=== PATIENT | female | born 1975 | race Caucasian/White ===

== ENCOUNTER → 2016-04-26 | Outpatient (CLI) | payer OTHER | LOC: SBRMNEURO 21:30 | PROVIDERS: ATTEND Psychiatry & Neurology Sleep Medicine | DX: G47.33 Obstructive sleep apnea (adult) (pediatric) (principal) ==

== ENCOUNTER → 2017-03-02 | Outpatient (CLI) | payer OTHER | LOC: FIMAGING 09:42 | PROVIDERS: ATTEND Internal Medicine | DX: Z12.31 Encounter for screening mammogram for malignant neoplasm of breast (principal) | CPT/HCPCS: G0202 ==

== ENCOUNTER → 2018-02-04 | Outpatient (CLI) | payer OTHER | LOC: FIMAGING 07:49 | PROVIDERS: ATTEND Internal Medicine | DX: M53.3 Sacrococcygeal disorders, not elsewhere classified (principal) ==

== ENCOUNTER → 2018-02-04 | Outpatient (CLI) | payer OTHER | LOC: FIMAGING 08:03 | PROVIDERS: ATTEND Physician Assistant | DX: R16.0 Hepatomegaly, not elsewhere classified (principal) ==

== ENCOUNTER → 2018-03-04 | Outpatient (CLI) | payer OTHER | LOC: FIMAGING 11:33 | PROVIDERS: ATTEND Internal Medicine | DX: Z12.31 Encounter for screening mammogram for malignant neoplasm of breast (principal) ==

== ENCOUNTER → 2018-03-08 | Outpatient (CLI) | payer OTHER | LOC: FIMAGING 19:19 | PROVIDERS: ATTEND Physical Medicine & Rehabilitation | DX: M48.02 Spinal stenosis, cervical region (principal) ==

== ENCOUNTER 2018-03-11 09:35 | Outpatient (CLI) | payer OTHER ==
[2018-03-11] MEDS ORDERED: LIDOCAINE 1% 300 MG/30 ML SDV ONE (10:00)
[2018-03-11] MEDS ORDERED: NALOXONE HCL 0.4 MG/ML INJ IVP PRN (10:03)
[2018-03-11] MEDS ORDERED: MIDAZOLAM 2 MG/2 ML VIAL IVP PRN (10:03)
[2018-03-11] MEDS ORDERED: fentaNYL 100 MCG/2 ML INJ IVP PRN (10:03)
[2018-03-11] MEDS ORDERED: MEPERIDINE 25 MG/ML SYR IVP PRN (10:03)
[2018-03-11] MEDS ORDERED: FLUMAZENIL 0.5 MG/5 ML MDV IVP PRN (10:03)
[2018-03-11] MEDS ORDERED: NS 1,000 ML IV SCH (10:15)
[2018-03-11] MEDS ORDERED: ONDANSETRON 4 MG/2 ML VIAL IVP PRN (11:25)
[2018-03-11] MEDS ORDERED: oxyCODONE IR 5 MG TAB PO PRN (11:25)
--- NOTE | 2018-03-11 11:26 | PDRADPRE ---
Radiology History & Physical Indication for procedure: liver disease Home medications: Herbals/Supplements -Info Only 1 each PO AD 03/23/13 [Last Taken Unknown] Levothyroxine [Synthroid 100 mcg (RX)] 125 mcg PO DAILY 03/23/13 [Last Taken Unknown] metFORMIN HCL [Glucophage 1000 mg] 1,000 mg PO BIDMEAL 03/23/13 [Last Taken Unknown] Sulindac 250 mg PO BID 03/05/18 [Last Taken Unknown] Zoloft 100mg (*) 150 mg PO DAILY 03/05/18 [Last Taken Unknown] buPROPion SR [Wellbutrin 150mg SR (*)] 150 mg PO DAILY 03/05/18 [Last Taken Unknown] Allergies/Adverse Reactions: Penicillins Allergy (Verified 03/05/18 13:14) Mental status: A&Ox3 Heart exam: regular rate and rhythm Lungs exam: clear to auscultation Mallampati Score: Class 3
--- NOTE | 2018-03-11 11:26 | PDPROPOC ---
Sedation Plan of Care Sedation Plan of Care: vital signs stable, mental status noted, patient educated of risks, benefits, alternatives, patient can tolerate sedation ASA Classification: ASA 2 Planned drugs: fentanyl, midazolam Mallampati Score: Class 3 Mallampati Reference Image: Patient passed 3-3-2 rule?: Yes
--- NOTE | 2018-03-11 11:27 | PDRADPN ---
Radiology Procedure Note Date of Procedure: 03/11/18 Radiologist: Liam Bradley Anesthesia: IV Sedation Pre-op Diagnosis: Autoimmune hepatitis Post-op Diagnosis: Autoimmune hepatitis Indication: Liver disease Procedure: US guided liver biopsy Finding(s): 18 ga cores. Inf/Abcess present in the surg proc area at time of surgery?: No
[2018-03-11 15:56] VITALS: BP 134/83
== END 2018-03-11 14:55 | disposition home or self-care (01) ==
LOC: FIMAGING 09:35
PROVIDERS: ATTEND Physician Assistant
PROC: 0FB03ZX Excision of Liver, Percutaneous Approach, Diagnostic (ICD-10-PCS; principal; 2018-03-11 11:36)
DX: K75.81 Nonalcoholic steatohepatitis (NASH) (principal)
CPT/HCPCS: J2250; J2310; J3010

== ENCOUNTER 2018-03-12 05:33 | Emergency (ER) | payer OTHER ==
--- NOTE | 2018-03-12 06:18 | EDPHY ---
H & P Stated Complaint: abdominal pain after liver biopsy 03/11 Time Seen by Provider: 03/12/18 05:42 HPI/ROS: Chief Complaint: Abdominal pain status post liver biopsy HPI: 43-year-old woman who is having right upper quadrant abdominal pain status post liver biopsy yesterday morning. Patient states she had liver biopsy about 11:00 a.m.. She was discharged the hospital at 2:30 a.m. With pain -free. Patient states she started developing pain about 5 in the evening. Been getting progressively worse. She did call speak with the on-call radiologist to encouraged her to come in for further evaluation but she states she fell sleep. She woke up this morning with increasing right upper abdominal pain. Hurts to move and take a deep breath. No shortness of breath. No nausea or vomiting. No fevers or chills. Pain is about a 7/10. She has not taken any medications. ROS: 10 systems were reviewed and were negative except those elements noted in the HPI. PMH: Polycystic ovarian syndrome Social History: No smoking, no alcohol, no recreational drug use Family History: non-contributory Physical Exam: Gen: Awake, Alert, No Distress HEENT: Nose: no rhinorrhea Eyes: PERRLA, EOMI Mouth: Moist mucosa Neck: Supple, no JVD Chest: nontender, lungs clear to auscultation Heart: S1, S2 normal, no murmur Abd: Obese, Soft, biopsy site is clean dry and intact, moderate right upper quadrant tenderness with voluntary guarding Back: no CVA tenderness, no midline tenderness Ext: no edema, non-tender Skin: no rash Neuro: CN II-XII intact, Sensation grossly intact, Strength 5/5 in bilateral upper and lower extremities - Personal History LMP (Females 10-55): 15-21 Days Ago Current Tetanus/Diphtheria Vaccine: Yes Current Tetanus Diphtheria and Acellular Pertussis (TDAP): Yes - Medical/Surgical History Hx Asthma: No Hx Chronic Respiratory Disease: No Hx Diabetes: Yes Hx Cardiac Disease: No Hx Renal Disease: No Hx Cirrhosis: No Hx Alcoholism: No Hx HIV/AIDS: No Hx Splenectomy or Spleen Trauma: No Other PMH: pre diabetes, PCOS, - Social History Smoking Status: Never smoked Constitutional: Initial Vital Signs Temperature (C) 37.3 C 03/12/18 05:36 Heart Rate 106 H 03/12/18 05:36 Respiratory Rate 18 03/12/18 05:36 Blood Pressure 155/75 H 03/12/18 05:36 O2 Sat (%) 94 03/12/18 05:36 O2 Delivery Mode Room Air Allergies/Adverse Reactions: Penicillins Allergy (Verified 03/12/18 05:35) Home Medications: Medication Instructions Recorded Herbals/Supplements -Info Only 1 each PO AD 03/23/13 Levothyroxine [Synthroid 100 mcg 125 mcg PO DAILY 03/23/13 (RX)] metFORMIN HCL [Glucophage 1000 mg] 1,000 mg PO BIDMEAL 03/23/13 Sulindac 250 mg PO BID 03/05/18 Zoloft 100mg (*) 150 mg PO DAILY 03/05/18 buPROPion SR [Wellbutrin 150mg SR 150 mg PO DAILY 03/05/18 (*)] Medical Decision Making - Diagnostics Imaging Results: CT scan of the abdomen pelvis shows no signs of bleed or hematoma. There is some constipation right colon. No findings suggestive of complication of her liver biopsy. Study interpreted Dr. Carney. ED Course/Re-evaluation: 43-year-old woman with post biopsy pain. No bleeding or complications noted on scan. She does have some constipation. Will discharge with outpatient follow- up. Will give her instructions for managing or constipation. - Data Points Laboratory Results: Laboratory Results 03/12/18 05:55 03/12/18 05:55 03/12/18 03/12/18 05:55 05:55 WBC 19.54 10^3/uL H 10^3/uL (3.80-9.50) RBC 4.93 10^6/uL 10^6/uL (4.18-5.33) Hgb 14.4 g/dL g/dL (12.6-16.3) Hct 42.0 % % (38.0-47.0) MCV 85.2 fL fL (81.5-99.8) MCH 29.2 pg pg (27.9-34.1) MCHC 34.3 g/dL g/dL (32.4-36.7) RDW 13.3 % % (11.5-15.2) Plt Count 283 10^3/uL 10^3/uL (150-400) MPV 8.6 fL L fL (8.7-11.7) Neut % (Auto) Pending Lymph % (Auto) Pending [place] % (Auto) Pending Eos % (Auto) Pending Baso % (Auto) Pending Nucleat RBC Rel Count Pending Absolute Neuts (auto) Pending Absolute Lymphs (auto) Pending Absolute Monos (auto) Pending Absolute Eos (auto) Pending Absolute Basos (auto) Pending Absolute Nucleated RBC Pending Immature Gran % Pending Immature Gran # Pending Platelet Estimate Pending Sodium 138 mEq/L mEq/L (135-145) Potassium 4.1 mEq/L mEq/L (3.5-5.2) Chloride 108 mEq/L mEq/L (97-110) Carbon Dioxide 22 mEq/l mEq/l (22-31) Anion Gap 8 mEq/L mEq/L (6-14) BUN 9 mg/dL mg/dL (7-23) Creatinine 0.6 mg/dL mg/dL (0.6-1.0) Estimated GFR > 60 Glucose 154 mg/dL H mg/dL (70-100) Calcium 9.1 mg/dL mg/dL (8.5-10.4) Departure - Departure Disposition: Home, Routine, Self-Care Clinical Impression: Constipation, Abdominal pain Condition: Good Instructions: Constipation (ED), Acute Abdominal Pain (ED) Additional Instructions: Make sure to drink at least eight 8 oz glasses of water a day. You may take MiraLax daily according to package instructions. If you feel constipated drink 1/2 bottle of magnesium citrate. Wait 1-2 hours. If you do not have a bowel movement after that time drink the 2nd half of the bottle. If you continues to be constipated you may use a Fleet's enema, available over- the-counter. Follow up with primary care physician in 2-3 days if symptoms are not improving. Referrals: Yaneli Zarate MD [Primary Care Provider] - As per Instructions
[2018-03-12 06:31] LABS: PLATELET COUNT 283 10^3/uL (150-400)
[2018-03-12] MEDS ORDERED: IOPAMIDOL (ISOVUE 370) 100 ML BTL IV ONE (06:42)
[2018-03-12 07:31] VITALS: BP 145/76
== END 2018-03-12 07:30 | disposition home or self-care (01) ==
DX: R10.11 Right upper quadrant pain (principal); K59.00 Constipation, unspecified; R73.03 Prediabetes; Z98.890 Other specified postprocedural states
CPT/HCPCS: Q9967

== ENCOUNTER → 2018-03-13 | Outpatient (CLI) | payer OTHER | LOC: FIMAGING 17:41 → EDSTATUS 17:43 | PROVIDERS: ATTEND Internal Medicine | DX: R93.2 Abnormal findings on diagnostic imaging of liver and biliary tract (principal); D72.829 Elevated white blood cell count, unspecified ==